=== PATIENT | female | born 1975 | race Caucasian/White ===

== ENCOUNTER 2016-12-15 17:53 | Emergency (ER) | payer MEDICARE, BC ==
[2016-12-15 18:01] VITALS: BP 115/65
--- NOTE | 2016-12-15 18:50 | RAD ---
Indication: Reason inversion injuries. Fall 2 weeks ago. Ankle instability and pain mostly at the lateral foot/base of the fifth metatarsal. Comparison: December 03, 2011 radiographs. Technique: AP, mortise, and lateral views LEFT ankle. AP, lateral, and oblique views of the LEFT foot. Report: Normal articular alignment at the ankle and foot. Negative for fracture or osteochondral lesion. Moderately large plantar fascia origin bone spur without significant change. Normal variant bipartite sesamoid at the medial head of the flexor hallucis brevis. Soft tissue swelling about the visualized lower leg and ankle including over both the medial and lateral malleoli. No suggestion of talocrural joint effusion. IMPRESSION: Soft tissue swelling without evidence for fracture or malalignment.
--- NOTE | 2016-12-15 19:15 | UC ---
Lower Extremity/Ankle HPI - HPI Summary HPI Summary: HAS [id number] SYNDROME, HAS BEEN HAVING MULTIPLE TWISTING OF LEFT ANKLE/FOOT OVER LAST TWO WEEKS DUE TO FOOT DROP. CONCERN FOR MULTIPLE INJJURIES. NO KNEE PAIN. NO SHORTNESS OF BREATH. NO HEAD TRAUMA OR NECK PAIN. - History of Current Complaint Chief Complaint: UCLowerExtremity Stated Complaint: FOOT INJURY Time Seen by Provider: 12/15/16 18:01 Hx Obtained From: Patient, Family/Janitor Caretaker Onset/Duration: Sudden Onset, Lasting Weeks, Still Present Severity Initially: Moderate Severity Currently: Moderate Aggravating Factor(s): Standing, Ambulation Alleviating Factor(s): Rest, Elevation Able to Bear Weight: Yes - Risk Factors Gout Risk Factors: Negative DVT Risk Factors: Negative Septic Arthritis Risk Factor: Negative - Allergies/Home Medications Allergies/Adverse Reactions: Allergies Allergy/AdvReac Type Severity Reaction Status Date / Time Aspirin Allergy Intermediate Hives Verified 12/15/16 18:02 Penicillins Allergy Intermediate Hives Verified 12/15/16 18:02 PMH/Surg Hx/FS Hx/Imm Hx Previously Healthy: Yes - Surgical History Surgical History: Yes Surgery Procedure, Year, and Place: hysterectomy. ablation. cholecysetomy. carpal tunnel bilaterally - Family History Known Family History: Positive: Other - [id number] Family History: No FHx of breast CA - Social History Occupation: Employed Full-time Lives: With Family Alcohol Use: None Substance Use Type: Prescribed Smoking Status (MU): Heavy Every Day Tobacco Smoker Cessation Counseling: Patient Advised to Stop Review of Systems Constitutional: Negative Skin: Negative Eyes: Negative ENT: Negative Respiratory: Negative Cardiovascular: Negative Gastrointestinal: Negative Genitourinary: Negative Motor: Negative Neurovascular: Negative Musculoskeletal: Arthralgia - LEFT ANKLE, Edema, Myalgia - LEFT FOOT Neurological: Negative Psychological: Negative All Other Systems Reviewed And Are Negative: Yes Physical Exam Triage Information Reviewed: Yes Appearance: Well-Appearing, No Pain Distress, Well-Nourished Vital Signs: Initial Vital Signs Temp 98.6 F 12/15/16 17:56 Pulse 69 12/15/16 17:56 Resp 19 12/15/16 17:56 BP 115/65 12/15/16 17:56 Pulse Ox 96 12/15/16 17:56 Vital Signs Reviewed: Yes Eye Exam: Normal ENT Exam: Normal ENT: Positive: Normal ENT inspection, Hearing grossly normal, TMs normal Dental Exam: Normal Neck exam: Normal Neck: Positive: Supple, Nontender, No Lymphadenopathy Respiratory Exam: Normal Respiratory: Positive: Chest non-tender, Lungs clear, Normal breath sounds, No respiratory distress, No accessory muscle use Cardiovascular Exam: Normal Cardiovascular: Positive: RRR, No Murmur, Pulses Normal Abdominal Exam: Normal Musculoskeletal: Positive: Strength Limited @ - LEFT FOOT/ANKLE, ROM Limited @ - LEFT FOOT/ANKLE, Edema @ - LEFT FOOT/ANKLE Neurological Exam: Normal Psychological Exam: Normal Psychological: Positive: Normal Response To Family Skin Exam: Normal Lower Extremity Course/Dx - Differential Dx/Diagnosis Differential Diagnosis/HQI/PQRI: Fracture (Closed), Sprain, Strain Provider Diagnoses: LEFT FOOT/ANKLE SPRAIN; CHARCOT-KADIE TOOTH SYNDROME Discharge - Discharge Plan Condition: Stable Disposition: HOME Patient Education Materials: Ankle Sprain (ED), Foot Sprain (ED) Referrals: Tino Rod MD [Medical Doctor] - Héctor Tolentino MD [Primary Care Provider] - Additional Instructions: PHYSICAL THERAPY REFERRAL: You have been prescribed physical therapy. Treatments may include stretching, exercise, application of heat or cold, and other modalities. After an injury, PT can reduce swelling and pain. In recovery, PT is used to restore mobility and strength. Your specific treatment goals are: ___X__ Reduction of Swelling (EGS, US, ice as needed) ____X_ Pain Reduction (EGS, US, ice as needed) TENS Pack Fitting and Instruction Wound Hydrotherapy ___X__ Preservation of Mobility ___X__ Jain of Mobility __X___ Strength Jain __X___ Work or Sports Hardening This instruction sheet also serves as your PHYSICAL THERAPY REFERRAL! Please take it with you to the therapist, so he/she will be aware of your diagnosis and treatment plan. You may see the physical therapist of your choice for these treatments, but may wish to check with your insurance to be sure the provider you select is covered. It's important to see the doctor to whom you have been referred for follow up.
== END 2016-12-15 19:15 | disposition home or self-care (01) ==
LOC: UCEAST 17:53
DX: S93.402A Sprain of unspecified ligament of left ankle, initial encounter (principal); G60.0 Hereditary motor and sensory neuropathy; F17.210 Nicotine dependence, cigarettes, uncomplicated; Z88.6 Allergy status to analgesic agent; Z88.0 Allergy status to penicillin; X50.1XXA Overexertion from prolonged static or awkward postures, initial encounter
CPT/HCPCS: 99212; G0463

== ENCOUNTER 2018-03-11 18:17 | Emergency (ER) | payer MEDICARE, BC ==
[2018-03-11 18:36] VITALS: BP 130/76
[2018-03-11] MEDS ORDERED: Albuterol/Ipratropium NEB.SOL* Albuterol 2.5 MG/Ipratropium 0.5 MG 3 ML INH ONE (19:07)
--- NOTE | 2018-03-11 19:12 | UC ---
Respiratory Complaint HPI - HPI Summary HPI Summary: Pt is a 43 year old female presenting to with a chief complaint of respiratory issues onset one week ago. She reports sinus pressure, head pressure , ear pain, fever, cough, runny nose, and scratchy throat. When she coughs, she feels that her head is going to explode. The pt is coughing up brownish/ greenish phlegm. Patient with wheeze. Patient with history of smoking. Patient's been using her albuterol MDI without relief. Patient with sick contacts as her children were sick for home from school. She is currently taking mucinex, Sudafed, and alternating Tylenol and ibuprofen. Theres no possibility of . Patients medications reviewed this visit. - History of Current Complaint Chief Complaint: UCGeneralIllness Stated Complaint: EAR ACHE Time Seen by Provider: 03/11/18 18:47 Hx Obtained From: Patient ?: No Onset/Duration: Gradual Onset, Lasting Weeks, Still Present Timing: Constant Severity Initially: Mild Severity Currently: Moderate Pain Intensity: 7 Pain Scale Used: 0-10 Numeric Character: Cough: Productive, Sputum Description: - green/brown Aggravating Factors: Deep Breaths Alleviating Factors: OTC Meds Associated Signs And Symptoms: Positive: Fever, Wheezing, Nasal Congestion, Sinus Discomfort - Allergies/Home Medications Allergies/Adverse Reactions: Allergies Allergy/AdvReac Type Severity Reaction Status Date / Time aspirin Allergy Hives Verified 03/11/18 20:04 Penicillins Allergy Hives Verified 03/11/18 20:04 prednisone Allergy Unknown Verified 03/11/18 20:18 Reaction Details Home Medications: Home Medications glipiZIDE [Glipizide Xl] 10 mg PO BID 03/11/18 [History Confirmed 03/11/18] oxyCODONE TAB* [Roxycodone TAB 5 mg*] 5 mg PO Q8H PRN 03/11/18 [History Confirmed 03/11/18] PMH/Surg Hx/FS Hx/Imm Hx Previously Healthy: No Endocrine History: Diabetes, Other Other Endocrine History: hyperlipidemia Cardiovascular History: Hypertension Respiratory History: Asthma GI/ History: Gastroesophageal Reflux Psychological History: Anxiety, Depression - Surgical History Surgical History: Yes Surgery Procedure, Year, and Place: hysterectomy. uterine ablation. cholecysetomy. carpal tunnel bilaterally - Family History Known Family History: Positive: Other - [id number] Family History: No FHx of breast CA - Social History Occupation: Works From/At Home Lives: With Family Alcohol Use: None Substance Use Type: None Smoking Status (MU): Heavy Every Day Tobacco Smoker Type: Cigarettes Review of Systems Constitutional: Negative ENT: Sore Throat, Ear Ache, Nasal Discharge, Sinus Pain/Tenderness Respiratory: Cough Neurological: Headache All Other Systems Reviewed And Are Negative: Yes Physical Exam - Summary Physical Exam Summary: Vital Signs Reviewed: Yes A+Ox3, no distress Eyes: Conjunctiva Clear, BARB. EOM intact and full ENT: Hearing grossly normal fluid b/l ears right with erythema, turbinates inflammed and boggy, + exudate left tonsil. no erythema + PND Neck: Positive: Supple Respiratory: Positive: coarse cough, exp wheeze + BS throughout, mild increased WOB Cardiovascular: RRR nl s1, s2 no m/r CBT <2 sec abd soft + BS nt/nd no guarding, no distension Musculoskeletal Exam: AGUIRRE x 4 without difficulty Strength Intact, ROM Intact Neurological: Positive: Alert, + sensation throughout Psychological: Positive: Normal Response To Family Skin: Positive: no rash, no ecchymosis Triage Information Reviewed: Yes Vital Signs: Initial Vital Signs Temp 98.4 F 03/11/18 18:31 Pulse 89 03/11/18 18:31 Resp 16 03/11/18 18:31 BP 130/76 03/11/18 18:31 Pulse Ox 98 03/11/18 18:31 Diagnostic Evaluation - Laboratory O2 Sat by Pulse Oximetry: 98 Re-Evaluation - Re-Evaluation First Eval Change: Improved - Pt markedly improved following neb states feels better Will Rx doxy albuterol sercretion precaution mucinex decongestant return precautions work note Respiratory Course/Dx - Course Course Of Treatment: Patient presents emergency department with progressive head congestion and ear fullness shortness of breath cough and wheeze. Patient has been taking Mucinex, albuterol, and Sudafed with little relief. Patient states she got sick from her children. Patient does smoke cigarettes. On exam vital signs reviewed. Patient with diffuse expiratory wheezes and coarse cough. Patient does have fluid in ears right is red. We will give patient a dual neb. We will test strep given that there is exudate on the left tonsil. Close reassessment. Patient comfortable in agreement with plan. - Differential Dx/Diagnosis Provider Diagnoses: acute bronchitis. sinusitis Discharge - Sign-Out/Discharge Documenting (check all that apply): Patient Departure All imaging exams completed and their final reports reviewed: No Studies - Discharge Plan Condition: Stable Disposition: HOME Prescriptions: Albuterol HFA INHALER* [Ventolin HFA Inhaler*] 1 puff INH Q4H PRN #1 mdi PRN Reason: wheeze DOXYcycline CAP(*) [DOXYcycline 100MG CAP(*)] 100 mg PO BID #20 cap Inhaler, Assist Devices [Aerochamber Mv] 1 each MC Q4HR #1 spacer Patient Education Materials: Sinusitis (ED), Acute Bronchitis (ED) Forms: *Work Release Referrals: Héctor Tolentino MD [Primary Care Provider] - Additional Instructions: - Take antibiotics exactly as prescribed until gone -Use your albuterol puffer - 2 puffs ever 4hours for the next 2 days - then as needed - humidify the air in the room where you sleep - okay to take Mucinex and sudafed as previous -Stay well hydrated - avoid excess caffeine and all alcohol - eat regular, healthy meals - These infections are spread by oral secretions. Do not share eating or drinking utensils. Frequent hand washing is important. Clean items that may get your secretions on them such as cell phones, ipads, computer mouse, television remotes. Once you have been on antbiotics for 2 days, change your pillowcase and your toothbrush -Contact your doctor to arrange a follow-up appointment this week. Call your doctor, return here or go to the emergency department with any questions or concerns - Billing Disposition and Condition Condition: STABLE Disposition: Home - Attestation Statements Document Initiated by [employer]: Yes Documenting Scribe: Julita Chamorro Provider For Whom Alta is Documenting (Include Credential): Avis Raines MD. Scribe Attestation: Julita Swan, scribed for Avis Raines MD. on 03/11/18 at 2121. Scribe Documentation Reviewed: Yes Provider Attestation: The documentation as recorded by the aceibeJulita accurately reflects the service I personally performed and the decisions made by me, Avis Raines MD.
[2018-03-11] MEDS ORDERED: Albuterol/Ipratropium NEB.SOL* Albuterol 2.5 MG/Ipratropium 0.5 MG 3 ML ONE (19:25)
== END 2018-03-11 20:15 | disposition home or self-care (01) ==
LOC: UCEAST 18:17
DX: J20.9 Acute bronchitis, unspecified (principal); J32.9 Chronic sinusitis, unspecified; E11.21 Type 2 diabetes mellitus with diabetic nephropathy; Z79.84 Long term (current) use of oral hypoglycemic drugs; Z88.6 Allergy status to analgesic agent; Z88.0 Allergy status to penicillin; Z88.8 Allergy status to other drugs, medicaments and biological substances; F17.210 Nicotine dependence, cigarettes, uncomplicated
CPT/HCPCS: 87651; 99212; A9270-GY; G0463